=== PATIENT | male | born 1975 | race Caucasian/White ===

== ENCOUNTER 2021-03-15 02:26 | Day surgery (SDC) | payer BC, SELFPAY ==
[2021-03-06 10:22] VITALS: BMI 27.3
--- NOTE | 2021-03-14 08:50 | PM.IMHP ---
H&P: HPI History of Present Illness Date/Time: 03/14/21 08:50 Chief Complaint: nasal obstruction, nasal congestion, inferior turbinate hypertrophy, septal deviation Narrative: patient presents for planned surgical procedures. No change in symptoms no change in medical history. Review of Systems Constitutional: Constitutional: Denies fatigue, Denies fever(s) and Denies lethargy Eyes: Eyes: Denies blurry vision and Denies change in vision ENT: Reports as per HPI Cardiovascular: Cardiovascular: Denies chest pain Respiratory: Respiratory: Denies cough Endocrine: Endocrine: Denies fatigue Hematologic/Lymphatic: Hematologic/Lymphatic: Denies easy bleeding, Denies easy bruising and Denies lymphadenopathy Allergic/Immunologic: Allergic/Immunologic: Denies seasonal rhinorrhea [facility] Past Medical History Medical History Annual physical exam BMI 29.0-29.9,adult Encounter for long-term (current) use of medications Family history of coronary artery disease History of fracture of nasal bone Nose abnormality Family History Family History Father Hypertension Cerebrovascular accident Family history of diabetes mellitus in first degree relative Family history of heart disease in male family member before age 55 Mother Hypertension Other Diabetes mellitus Family history of cardiovascular disease Social History Social History Smoking status: Never smoker Tobacco type: cigars Additional smoking assessment comments: Smokes occasional cigars Alcohol intake: current Drinks per week: 7 Meds Home Medications and Allergies Home Medications Medication Instructions Recorded Confirmed Type calcium carbonate 600 mg calcium 1,200 mg PO DAILY tablet 01/11/20 03/06/21 History (1,500 mg) tablet multivitamin,[id number] 1 tablet PO DAILY 01/11/20 03/06/21 History omega-3 fatty acids 1,000 mg 2,000 mg PO BID cap 01/11/20 03/06/21 History capsule psyllium husk 0.4 gram capsule 0.4 gm PO DAILY 01/11/20 03/06/21 History Allergies Allergy/AdvReac Type Severity Reaction Status Date / Time No Known Allergies Allergy Mild Verified 03/06/21 10:15 Exam Const: General: cooperative, healthy appearing, comfortable, well developed and alert HENMT: Head: normal to inspection, normocephalic and atraumatic Ears: hearing grossly normal bilaterally, external ears normal, TM's normal bilaterally and EAC's normal General nose exam: Normal external nose present, Normal nares present, No nasal polyps present, mucous membranes and turbinates abnormal, abnormal septum and Other nasal findings present ( Severe caudal deviation inferior turbinate hypertrophy) Face and sinus: normal facial exam Mouth: Yes Normal oral and palatal mucosa present, Yes lip normal, Yes tongue normal, Yes oropharynx normal and Yes moist mucous membranes Teeth and gingiva: dentition normal and gingiva normal Throat: posterior oropharynx normal, tonsils normal and uvula midline Eyes: General: appearance normal, both eyes and all related structures Periorbital: periorbital findings normal Eyelids: eyelids normal Conjunctivae: conjunctivae normal Sclera: sclerae normal Neck: Neck: normal visual inspection, full ROM and no lymphadenopathy Thyroid: thyroid normal Lymphatic: no lymphadenopathy noted Resp: Effort & Inspection: normal respiratory effort and able to speak in complete sentences Cardio: Jugular venous distension: no JVD Neuro: Cranial nerves: Yes CN's II-XII intact bilaterally Assessment and Plan Assessment and plan (1) Nasal septal deviation: Code(s): J34.2 - Deviated nasal septum Status: Acute Assessment and Plan: Plan is for the operating room for endoscopic assisted septoplasty, inferior turbinate reduction submucosally, an
[2021-03-15] VITALS (7 sets, daily range): BP systolic 115–154; BP diastolic 77–93; PULSE 66–87; RESP 11–16; TEMP 36.1; O2SAT 98–100; BMI 28.1
--- NOTE | 2021-03-15 06:57 | WPDHPUPDATE1 ---
History and Physical Update Update Date/Time: 03/15/21 06:57 History and Physical has been reviewed, including an updated exam of the patient. There are NO changes in the patient's condition. Risks, benefits, and alternatives have been discussed and questions answered. Patient agrees to proceed with procedure.
[2021-03-15] MEDS: ACETAMINOPHEN 500 MG TABLET 1000 MG PO (07:14)
[2021-03-15] MEDS: OXYMETAZOLINE HCL 0.05% NAS 15 ML BTL (*BKC) 1 SPRAY NASAL (07:15)
[2021-03-15] MEDS: LACTATED RINGERS 1,000 ML 30 ML IV CONT ×2 (08:03→10:28)
--- NOTE | 2021-03-15 08:05 | P.PNAN_ITS ---
Anes - Initial Pre Proc Eval Procedure: Operation Date: 03/15/21 08:30 Proposed Procedures p Septoplasty - Prateek Biggs MD s Bilateral Inferior Turbinectomy - Prateek Biggs MD Date/Time: 03/15/21 08:05 Surgeon: Prateek Biggs MD Pre Op Diagnosis: septal deviation, turbinate hypertrophy Patient Data Age: 45 Gender: M Height: 1.78 m Weight: 89.05 kg Last Vital Signs Temp 36.1 C L 03/15/21 06:35 Pulse 71 03/15/21 06:35 Resp 16 03/15/21 06:35 BP 115/84 03/15/21 06:35 Pulse Ox 100 03/15/21 06:35 Allergies Allergy/AdvReac Type Severity Reaction Status Date / Time No Known Allergies Allergy Mild Verified 03/15/21 06:41 Home Medications Medication Instructions Recorded Confirmed Type calcium carbonate 600 mg calcium 1,200 mg PO DAILY tablet 01/11/20 03/06/21 History (1,500 mg) tablet multivitamin,[id number] 1 tablet PO DAILY 01/11/20 03/06/21 History omega-3 fatty acids 1,000 mg 2,000 mg PO BID cap 01/11/20 03/06/21 History capsule psyllium husk 0.4 gram capsule 0.4 gm PO DAILY 01/11/20 03/06/21 History Patient hx anesthesia problems: none Family hx anesthesia problems: none Results Review: All pre-operative results and documents have been reviewed as part of the pre-operative evaluation. [facility] Past Medical History Medical History Annual physical exam BMI 29.0-29.9,adult Encounter for long-term (current) use of medications Family history of coronary artery disease History of fracture of nasal bone Nose abnormality Family History Family History Father Hypertension Cerebrovascular accident Family history of diabetes mellitus in first degree relative Family history of heart disease in male family member before age 55 Mother Hypertension Other Diabetes mellitus Family history of cardiovascular disease Social History Social History Smoking status: Never smoker Tobacco type: cigars Additional smoking assessment comments: Smokes occasional cigars Alcohol intake: current Drinks per week: 7 Living arrangements: with family Myra Huynh Final PreProcedure Day of Procedure 03/15/21 08:05 Patient weight: overweight Heart: regular rate and rhythm Lungs: clear to auscultation Airway: Mallampati scale class II Neurological: alert and oriented Last oral intake: >/= 8 hours ASA classification: II Emergent: no Anesthetic plan: proceed Anesthesia type and monitoring: general ETT and standard monitoring Results Review: All pre-operative results and documents have been reviewed as part of the pre-operative evaluation. Informed Consent: The patient's anesthetic plan and its attendant risks and benefits were discussed with the patient/family/POA. Questions were solicited and answers provided to the satisfaction of the patient/family/POA.
[2021-03-15] MEDS: ceFAZolin 2 GM/D5W 50 ML 2 GM/50 ML BAG IVPB (08:18)
[2021-03-15] MEDS: LIDO 1%/EPINEPHRINE/PF 1:200,000 30 ML VIAL XX (08:59)
--- NOTE | 2021-03-15 10:48 | W.PM.PROC2 ---
Procedure Note - Detailed Date of Procedure 03/15/21 Pre-op Diagnosis septal deviation, turbinate hypertrophy, nasal obstruction, nasal congestion Post-op Diagnosis same Procedure Performed 1. Endoscopic assisted septoplasty 2. Inferior turbinate submucosal resection with outfracture Surgeon Prateek Biggs MD Anesthesia general Indications See above Findings Severely deviated leftward septum, midline following procedure 2 perforations small opposing perforations closed with mattress suture cartilage placed between Description of Procedure The patient was correctly identified consent was verified in the preoperative holding area. The patient was then brought to the operating room and a time-out performed. General anesthesia was induced and endotracheal tube was secured the patient's airway and taped to the left lower lip. The patient was then prepped and draped for the aforementioned procedure. Second time-out performed. Afrin-soaked pledgets were placed the bilateral nasal passages and allowed to sit for 5 minutes. Total 14 cc was injected in the submucoperichondrial plane on the septum as well as anterior heads of the bilateral inferior turbinates. [place] incision made with a 15 blade left mucoperichondrial flap elevated septum crossed over anterior to the deviation and right mucoperichondrial flap 2 perforations were noted a small 1 on the right and a larger 1 on the left both without loss of mucosa. The opposed slightly. Deviated septum removed combination of osteotome [place] forceps and [place] forceps. Following the procedure a piece of septum was straightened and thinned as well as scored. This was placed in between the poor perforations the perforations were then mattressed with a 5 0 fast gut suture across closing the perforations and keeping the cartilage in between them with a apposed. The bilateral inferior turbinates were then resected in the submucosal plane using microdebrider with turbinate blade. Good resection was performed bilaterally. Hemostasis was excellent. There were then outfractured with a [place] elevator. The bilateral nasal passages were suctioned of the choana. Mcgrath splints were then placed excuse me the [place] incision was then closed with 5 interrupted 5 0 fast gut sutures. Mcgrath splints placed bilaterally and sutured anteriorly using a 3-0 mattress nylon suture. Total blood loss 5 cc there were no immediate complications. Care the patient was turned over to Anesthesiology. Implants Mcgrath Splints Estimated Blood Loss 5 Drains No Packing No Pathology none sent Complications No immediate complications Condition stable Disposition PACU
[2021-03-15] MEDS: fentaNYL CITRATE INJ (*CRX) 100 MCG/2 ML VIAL 25 MCG IV PUSH ×2 (10:57→11:05)
[2021-03-15] MEDS: oxyCODONE HCL (*CRX) 5 MG TAB IR PO (12:00)
== END 2021-03-15 12:14 | disposition home or self-care (01) ==
PROVIDERS: PCP Internal Medicine; Visit Provider Otolaryngology
PROC: (CPT 30520; principal; 2021-03-15 08:30)
PROC: (CPT 30520; 2021-03-15 08:30)
DX: J34.2 Deviated nasal septum (principal); J34.3 Hypertrophy of nasal turbinates; J34.89 Other specified disorders of nose and nasal sinuses; R09.81 Nasal congestion; F17.290 Nicotine dependence, other tobacco product, uncomplicated; Z79.899 Other long term (current) drug therapy
CPT/HCPCS: 30520; 30140; A9270; J0330; J0690; J1100; J2250; J2405; J2704; J3010; J7120